=== PATIENT | male | born 1965 | race Two or more races ===

== ENCOUNTER 2018-02-27 09:07 | Day surgery (SDC) | payer OTHER ==
[2018-02-24 09:19] LABS: Basophils # (auto) 0 uL; Basophils % (auto) 0.2 % (0.0-2.0); Eosinophils # (auto) 0.1 uL; Mean Corpuscular Hemoglobin 34.8 pg (28.0-32.0); Monocytes # (auto) 0.4 uL; Monocytes % (auto) 8.5 % (0.0-12.0); Neutrophils # (auto) 2.9 uL; Nucleated Red Blood Cells % 0.1 %
[2018-02-24 09:21] LABS: Eosinophils % (auto) 1.1 % (0.0-7.0); Hematocrit 47.4 % (41.0-53.0); Hemoglobin 16.6 g/dL (13.5-17.5); Lymphocytes # (auto) 1.6 uL; Lymphocytes % (auto) 32.5 % (10.0-50.0); Mean Corpuscular Volume 99.2 fL (80.0-100.0); Neutrophils % (auto) 57.7 % (37.0-80.0); Platelet Count (auto) 145 10^3/uL (140-450); Red Blood Cells 4.77 10^6/uL (4.5-5.90); Red Cell Distribution Width 12.4 % (11.8-14.3)
[2018-02-24 09:29] LABS: INR 0.97 (0.9-1.15); Prothrombin Time 10.4 sec (9.27-12.13)
[~2018-02-27] VITALS: Ht 182.9 cm; Wt 104.3 kg
[~2018-02-27 09:07] MED LIST: METF-370 PO; SIMV-8 PO
[2018-02-27] MEDS ORDERED: SODIUM CHLORIDE LOCK 10 ML ONE (10:21)
[2018-02-27] MEDS: MIDAZOLAM HCL 5 MG/ML-1ML VIAL ONE ×3 (10:22→10:30)
[2018-02-27] MEDS: fentaNYL CITRATE 100 MCG/2 ML VL ONE ×3 (10:22→10:30)
[2018-02-27 11:14] VITALS: BP 117/91
== END 2018-02-27 11:22 | disposition home or self-care (01) ==
LOC: SUR 09:07
PROVIDERS: ATTEND Internal Medicine Gastroenterology
DX: Z12.11 Encounter for screening for malignant neoplasm of colon (principal); D12.3 Benign neoplasm of transverse colon; K64.8 Other hemorrhoids; E11.9 Type 2 diabetes mellitus without complications; Z79.84 Long term (current) use of oral hypoglycemic drugs; Z79.899 Other long term (current) drug therapy
CPT/HCPCS: 36415; 45380; 82962; 85025; 85610; 85730; 88305; 99152; J2250; J3010; J7030

== ENCOUNTER → 2018-06-19 | Outpatient (CLI) | payer OTHER | END | disposition home or self-care (01) | LOC: LAB 08:20 | PROVIDERS: ATTEND Internal Medicine | DX: E11.9 Type 2 diabetes mellitus without complications (principal); E78.5 Hyperlipidemia, unspecified; D69.6 Thrombocytopenia, unspecified | CPT/HCPCS: 36415; 83036; 83721 ==

== ENCOUNTER 2018-11-27 15:06 | Emergency (ER) | payer MEDICAID ==
[~2018-11-27] VITALS: Ht 182.9 cm; Wt 106.6 kg
[~2018-11-27 15:06] MED LIST changes: -SIMV-8 PO
[2018-11-27 16:25] LABS: Basophils # (auto) 0 uL; Eosinophils # (auto) 0.1 uL; Eosinophils % (auto) 1.7 % (0.0-7.0); Lymphocytes # (auto) 2.3 uL; Monocytes # (auto) 0.7 uL; Red Cell Distribution Width 12.3 % (11.8-14.3)
[2018-11-27 16:29] LABS: Basophils % (auto) 0.1 % (0.0-2.0); Hematocrit 46.3 % (41.0-53.0); Hemoglobin 16.4 g/dL (13.5-17.5); Lymphocytes % (auto) 29.5 % (10.0-50.0); Mean Corpuscular Hemoglobin 34.8 pg (28.0-32.0); Mean Corpuscular Hgb Conc. 35.3 g/dL (32.0-36.0); Mean Corpuscular Volume 98.5 fL (80.0-100.0); Monocytes % (auto) 8.5 % (0.0-12.0); Neutrophils # (auto) 4.6 uL; Neutrophils % (auto) 60.2 % (37.0-80.0); Platelet Count (auto) 152 10^3/uL (140-450); Red Blood Cells 4.71 10^6/uL (4.5-5.90); White Blood Cell 7.7 10^3/uL (4.4-10.8)
[2018-11-27 16:39] LABS: Albumin 3.7 g/dL (3.4-5.0); Calcium 9.7 mg/dL (8.5-10.1); Potassium 4.2 mmol/L (3.5-5.1)
[2018-11-27 16:43] LABS: BUN/Creatinine Ratio 18.8; Bilirubin, Total 0.4 mg/dL (0.2-1.0); Total Protein 8.5 g/dL (6.4-8.2)
[2018-11-27 21:13] VITALS: BP 99/67
== END 2018-11-27 21:16 | disposition home or self-care (01) ==
LOC: ER 15:06
DX: I82.402 Acute embolism and thrombosis of unspecified deep veins of left lower extremity (principal); E11.9 Type 2 diabetes mellitus without complications; E78.5 Hyperlipidemia, unspecified
CPT/HCPCS: 36415; 80053; 85025; 93005; 93971

== ENCOUNTER 2022-05-19 11:33 | Emergency (ER) | payer MEDICAID ==
[~2022-05-19] VITALS: Ht 180.3 cm; Wt 105.0 kg
[2022-05-19] MEDS ORDERED: TETANUS-DIPTH-ACEL PERTUSSIS 0.5ML SYR Tdap IM ONE (11:45)
[2022-05-19] MEDS ORDERED: LIDOCAINE 2%HCL (LOCAL ANESTH.) INJ 20ML MDV ID ONE (11:45)
[2022-05-19] MEDS ORDERED: NEOMYCIN-BACITRACIN-POLYM UNITDOSE PKG TOP OINT TOP ONE (11:45)
[2022-05-19 11:46] VITALS: BP 148/71
[2022-05-19] MEDS ORDERED: LIDOCAINE 1% HCL (LOCAL ANESTH.) INJ 20ML MDV ONE (12:36)
[2022-05-19] MEDS ORDERED: CEFD300C2 PO ×2 (13:02→13:06)
[2022-05-19] MEDS ORDERED: NAP500T PO ×2 (13:02→13:06)
== END 2022-05-19 13:18 | disposition home or self-care (01) ==
LOC: ER 11:33
DX: S61.227A Laceration with foreign body of left little finger without damage to nail, initial encounter (principal); E78.5 Hyperlipidemia, unspecified; E11.9 Type 2 diabetes mellitus without complications; X58.XXXA Exposure to other specified factors, initial encounter; Y93.89 Activity, other specified; Y92.89 Other specified places as the place of occurrence of the external cause; Y99.8 Other external cause status
CPT/HCPCS: 12001; 73130; 90471; 90715; 99283; J2001

== ENCOUNTER 2023-01-27 08:16 | Emergency (ER) | payer MEDICAID ==
[~2023-01-27] VITALS: Ht 182.9 cm; Wt 107.0 kg
[~2023-01-27 08:16] MED LIST changes: +CEFD300C2 PO; +NAP500T PO
[2023-01-27 08:52] VITALS: BP 143/76; PULSE 71; RESP 18; TEMP 97.2; O2SAT 95
== END 2023-01-27 09:54 | disposition home or self-care (01) ==
LOC: ER 08:16
DX: M24.812 Other specific joint derangements of left shoulder, not elsewhere classified (principal); E11.9 Type 2 diabetes mellitus without complications; E78.5 Hyperlipidemia, unspecified; Z79.84 Long term (current) use of oral hypoglycemic drugs; Z79.899 Other long term (current) drug therapy
CPT/HCPCS: 73030